=== PATIENT | male | born 1930 | race Caucasian/White ===

== ENCOUNTER 2018-04-08 04:01 | Outpatient (CLI) | payer MEDICARE, OTHER | END 2018-04-08 23:59 | disposition home or self-care (01) | LOC: DIABETIC 04:01 | PROVIDERS: ATTEND Family Medicine | DX: E11.9 Type 2 diabetes mellitus without complications (principal) | CPT/HCPCS: G0108 ==

== ENCOUNTER 2018-07-24 00:45 | Outpatient (CLI) | payer MEDICARE, OTHER | END 2018-07-24 23:59 | disposition home or self-care (01) | LOC: DIABETIC 00:45 | PROVIDERS: ATTEND Family Medicine | DX: E10.9 Type 1 diabetes mellitus without complications (principal); Z79.82 Long term (current) use of aspirin | CPT/HCPCS: G0108 ==

== ENCOUNTER 2018-10-23 01:42 | Outpatient (CLI) | payer MEDICARE, OTHER | END 2018-10-23 23:59 | disposition home or self-care (01) | LOC: DIABETIC 01:42 | PROVIDERS: ATTEND Family Medicine | DX: E11.9 Type 2 diabetes mellitus without complications (principal); Z79.82 Long term (current) use of aspirin | CPT/HCPCS: G0108 ==

== ENCOUNTER 2019-01-22 01:35 | Outpatient (CLI) | payer MEDICARE, OTHER | END 2019-01-22 23:59 | disposition home or self-care (01) | LOC: DIABETIC 01:35 | PROVIDERS: ATTEND Family Medicine | DX: E11.9 Type 2 diabetes mellitus without complications (principal); Z79.899 Other long term (current) drug therapy | CPT/HCPCS: G0108 ==

== ENCOUNTER 2019-04-20 04:55 | Outpatient (CLI) | payer MEDICARE, OTHER | END 2019-04-20 23:59 | disposition home or self-care (01) | LOC: DIABETIC 04:55 | PROVIDERS: ATTEND Family Medicine | DX: E11.9 Type 2 diabetes mellitus without complications (principal); Z79.82 Long term (current) use of aspirin; Z79.899 Other long term (current) drug therapy | CPT/HCPCS: G0108 ==

== ENCOUNTER 2019-07-27 04:03 | Outpatient (CLI) | payer MEDICARE, OTHER | END 2019-07-27 23:59 | disposition home or self-care (01) | LOC: DIABETIC 04:03 | PROVIDERS: ATTEND Family Medicine | DX: E11.9 Type 2 diabetes mellitus without complications (principal); Z79.82 Long term (current) use of aspirin; Z79.899 Other long term (current) drug therapy | CPT/HCPCS: G0108 ==

== ENCOUNTER 2019-10-28 01:55 | Outpatient (CLI) | payer MEDICARE, OTHER | END 2019-10-28 23:59 | disposition home or self-care (01) | LOC: DIABETIC 01:55 | PROVIDERS: ATTEND Family Medicine | DX: E11.9 Type 2 diabetes mellitus without complications (principal); Z79.84 Long term (current) use of oral hypoglycemic drugs | CPT/HCPCS: G0108 ==

== ENCOUNTER 2021-09-17 18:33 | Emergency (ER) | payer MEDICARE, OTHER ==
[~2021-09-17] VITALS: Ht 165.1 cm; Wt 71.8 kg
[2021-09-17 19:12] LABS: BASOPHILS % (AUTO) 0.8 % (0-1); EOSINOPHILS # (AUTO) 0.2 X10'3 (0-0.9); EOSINOPHILS % (AUTO) 3.2 % (0-6); HEMATOCRIT 37.3 % (42.0-52.0); HEMOGLOBIN 12.6 g/dl (14.0-17.9); LYMPHOCYTES # (AUTO) 1.3 X10'3 (1.1-4.8); LYMPHOCYTES % (AUTO) 19.7 % (21-51); MEAN CORPUSCULAR HEMOGLOBIN 31.3 PG (27.0-31.0); MEAN CORPUSCULAR HGB CONC 33.9 g/dL (33.0-36.5); MEAN CORPUSCULAR VOLUME 92.4 FL (78-98); MEAN PLATELET VOLUME 8.1 FL (7.4-10.4); MONOCYTES # (AUTO) 0.6 X10'3 (0-0.9); MONOCYTES % (AUTO) 9.9 % (2-12); NEUTROPHILS # (AUTO) 4.3 X10'3 (1.8-7.7); NEUTROPHILS % (AUTO) 66.4 % (42-75); PLATELET COUNT 236 X10'3 (140-440); RED BLOOD COUNT 4.04 X10'6 (4.70-6.10); RED CELL DISTRIBUTION WIDTH 13.8 % (11.5-14.5); WHITE BLOOD COUNT 6.5 X10'3 (4.5-11.0)
[2021-09-17 19:25] LABS: ALANINE AMINOTRANSFERASE 10 U/L (12-78); ALBUMIN 3.8 G/DL (3.4-5.0); ALBUMIN/GLOBULIN RATIO 1.2 (1.1-1.5); ALKALINE PHOSPHATASE 80 IU/L (46-116); ANION GAP 11 (8-16); ASPARTATE AMINO TRANSFERASE 17 U/L (10-37); BILIRUBIN,TOTAL 0.5 MG/DL (0.1-1.0); BLOOD UREA NITROGEN 26 MG/DL (7-18); BUN/CREATININE RATIO 21.7 (5.4-32.0); CALCIUM 8.6 MG/DL (8.5-10.1); CHLORIDE 101 MMOL/L (99-107); GLUCOSE 165 MG/DL (70-104); POTASSIUM 3.8 MMOL/L (3.5-5.1); SODIUM 135 MMOL/L (135-145); TOTAL CARBON DIOXIDE 23.3 MMOL/L (24-32); TOTAL PROTEIN 6.9 G/DL (6.4-8.2); eGFR 57 ML/MIN
[2021-09-17] MEDS ORDERED: acetaminophen 325mg tablet PO ONE (20:35)
--- NOTE | 2021-09-17 20:36 | NUR ---
Patient complaint of headache 6/10 r/t nitro administration. Tylenol ordered
[2021-09-17 22:21] VITALS: BP 169/107
== END 2021-09-17 22:26 | disposition home or self-care (01) ==
LOC: ER 18:35
DX: R07.2 Precordial pain (principal); I48.91 Unspecified atrial fibrillation; F03.91 Unspecified dementia, unspecified severity, with behavioral disturbance; I25.10 Atherosclerotic heart disease of native coronary artery without angina pectoris; Z95.0 Presence of cardiac pacemaker
CPT/HCPCS: 36415; 71045; 80053; 83880; 84484; 85025; 93005; 99285